=== PATIENT | female | born 1965 | race Caucasian/White ===

== ENCOUNTER 2022-03-16 04:42 | Emergency (ER) | payer BC ==
[~2022-03-16] VITALS: Ht 175.3 cm; Wt 90.7 kg
--- NOTE | 2022-03-16 05:10 | NUR ---
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
--- NOTE | 2022-03-16 05:42 | NUR ---
Patient discharged to home in stable condition. Written and verbal after care instructions given. Patient verbalizes understanding of instruction.
[2022-03-16 05:45] VITALS: BP 123/78
== END 2022-03-16 05:45 | disposition home or self-care (01) ==
LOC: ER 04:46
DX: M79.671 Pain in right foot (principal)
CPT/HCPCS: 73630-TC